=== PATIENT | female | born 1985 | race Caucasian/White ===

== ENCOUNTER → 2016-08-29 | Outpatient (CLI) | payer MEDICAID | LOC: FIMAGING 13:11 | PROVIDERS: ATTEND Obstetrics & Gynecology Gynecology | DX: Z12.39 Encounter for other screening for malignant neoplasm of breast (principal); N64.4 Mastodynia ==

== ENCOUNTER 2017-04-15 13:51 | Emergency (ER) | payer MEDICAID ==
[2017-04-15 14:52] LABS: PLATELET COUNT 198 10^3/uL (150-400)
--- NOTE | 2017-04-15 14:57 | EDPHY ---
H & P Time Seen by Provider: 04/15/17 14:31 HPI/ROS: CHIEF COMPLAINT: Abdominal pain HISTORY OF PRESENT ILLNESS: 31-year-old woman started having symptoms 1 week ago on . Started as central pain in her low abdomen and then ended up focusing just above her umbilicus. It is worse with movement and dull and worse if she bends over. Not associated with any change with eating or drinking. No vomiting diarrhea urinary symptoms or vaginal symptoms. Symptoms moderate today and persistent. No fever and no direct trauma. REVIEW OF SYSTEMS: Eye: no change in vision ENT: no sore throat Cardiac: no chest pain or syncope Pulmonary: no cough or SOB Abdomen: HPI Musculoskeletal: no back pain Skin: no rash Neuro: no headache Constitutional: no fever : no urinary symptoms A comprehensive 10 point review of systems is otherwise negative aside from elements mentioned in the history of present illness. PAST MEDICAL HISTORY: Childhood asthma Social history: No alcohol. Returned in August from travel to [facility] and [facility] General Appearance: Alert and conversant, cooperative. Eyes: No scleral icterus. ENT, Mouth: Normal mucous membranes. Respiratory: Normal respiratory effort, breath sounds equal, lungs are clear to auscultation. Cardiovascular: Regular rate and rhythm. Gastrointestinal: Umbilical tenderness without evidence of fluctuance or palpable hernia. No McBurney's point tenderness. Neurological: Alert and oriented x3. Normally conversant. Face symmetric, normal movement and sensation in all extremities. Skin: Warm and dry, no rashes. Musculoskeletal: No peripheral edema and no joint swelling. Psychiatric: Not agitated. Emergency Department course/MDM: Patient has persistent periumbilical pain and tenderness after 6 days. At this point I think it is more reasonable to do imaging then continued watchful waiting. Her symptoms are persistent and CT scanning discussed and consented. 1625: CT shows collapsed R follicle, some pelvic fluid, normal appendix; [place]. No periumbilical hernia. Results discussed, most reasonable explanation is ruptured ovarian cyst last week. Patient looks comfortable, using her laptop. I do not think she has ovarian torsion. No peritoneal signs. Referred for primary care and/or OBGYN follow-up. Smoking Status: Never smoked Constitutional: Initial Vital Signs Temperature (C) 37.3 C 04/15/17 13:54 Heart Rate 78 04/15/17 13:54 Respiratory Rate 18 04/15/17 13:54 Blood Pressure 101/54 L 04/15/17 13:54 O2 Sat (%) 96 04/15/17 13:54 O2 Delivery Mode Room Air Allergies/Adverse Reactions: No Known Allergies Allergy (Unverified 09/11/13 07:52) Home Medications: Medication Instructions Recorded AMOXICILLIN TRIHYDRATE [Amoxil] 875 mg PO BID #20 tablet 09/11/13 Antipyrine/Benzocaine 4 drop OT Q1 PRN #1 btl 09/11/13 [Antipyrine-Benzocaine Otic Amy] Hydrocodone/APAP 5/325 [Harmony 1 - 2 each PO Q6 PRN #12 tab 09/11/13 5/325] Medical Decision Making - Diagnostics Imaging Results: Imaging Impressions Abdomen CT 04/15/17 15:33 Impression: 1. Small amount of fluid in the posterior right pelvis with a partially collapsed right ovarian cyst or follicle measuring 1.9 cm. 2. Constipation. 3. No CT evidence of appendicitis, abscess or bowel obstruction. 4. No evidence of inguinal hernia. Findings and recommendations discussed with Emergency Department physician, Teofilo Tovar at 1629 hour, 04/15/2017. Final report concurs with initial preliminary interpretation. Cosign: Dr. Vasu Salamanca. Differential Diagnosis: Includes but not limited to periumbilical hernia, appendicitis, ovarian torsion or ovarian cyst, ectopic - Data Points Laboratory Results: Laboratory Results 04/15/17 14:30 04/15/17 14:30 04/15/17 04/15/17 04/15/17 14:30 14:30 14:30 WBC RBC Hgb Hct MCV MCH MCHC RDW Plt Count MPV Neut % (Auto) Lymph % (Auto) [place] % (Auto) Eos % (Auto) Baso % (Auto) Nucleat RBC Rel Count Absolute Neuts (auto) Absolute Lymphs (auto) Absolute Monos (auto) Absolute Eos (auto) Absolute Basos (auto) Absolute Nucleated RBC Immature Gran % Immature Gran # Sodium 140 mEq/L mEq/L (134-144) Potassium 3.6 mEq/L mEq/L (3.5-5.2) Chloride 105 mEq/L mEq/L (97-110) Carbon Dioxide 22 mEq/l mEq/l (22-31) Anion Gap 13 mEq/L mEq/L (8-16) BUN 11 mg/dL mg/dL (7-23) Creatinine 0.6 mg/dL mg/dL (0.6-1.0) Estimated GFR > 60 Glucose 131 mg/dL H mg/dL (70-100) Calcium 9.8 mg/dL mg/dL (8.5-10.4) Beta HCG, Qual NEGATIVE Urine RBC 15-25 /hpf H /hpf (0-3) Urine WBC 1-3 /hpf /hpf (0-3) Ur Epithelial Cells TRACE /lpf /lpf (NONE-1+) Urine Bacteria TRACE /hpf H /hpf (NONE SEEN) Urine Mucus TRACE /lpf /lpf (NONE-1+) 04/15/17 14:30 WBC 5.30 10^3/uL 10^3/uL (3.80-9.50) RBC 3.72 10^6/uL L 10^6/uL (4.18-5.33) Hgb 12.5 g/dL L g/dL (12.6-16.3) Hct 36.4 % L % (38.0-47.0) MCV 97.8 fL fL (81.5-99.8) MCH 33.6 pg pg (27.9-34.1) MCHC 34.3 g/dL g/dL (32.4-36.7) RDW 11.7 % % (11.5-15.2) Plt Count 198 10^3/uL 10^3/uL (150-400) MPV 10.0 fL fL (8.7-11.7) Neut % (Auto) 49.8 % % (39.3-74.2) Lymph % (Auto) 36.2 % % (15.0-45.0) [place] % (Auto) 9.1 % % (4.5-13.0) Eos % (Auto) 3.2 % % (0.6-7.6) Baso % (Auto) 1.5 % % (0.3-1.7) Nucleat RBC Rel Count 0.0 % % (0.0-0.2) Absolute Neuts (auto) 2.64 10^3/uL 10^3/uL (1.70-6.50) Absolute Lymphs (auto) 1.92 10^3/uL 10^3/uL (1.00-3.00) Absolute Monos (auto) 0.48 10^3/uL 10^3/uL (0.30-0.80) Absolute Eos (auto) 0.17 10^3/uL 10^3/uL (0.03-0.40) Absolute Basos (auto) 0.08 10^3/uL 10^3/uL (0.02-0.10) Absolute Nucleated RBC 0.00 10^3/uL 10^3/uL (0-0.01) Immature Gran % 0.2 % % (0.0-1.1) Immature Gran # 0.01 10^3/uL 10^3/uL (0.00-0.10) Sodium Potassium Chloride Carbon Dioxide Anion Gap BUN Creatinine Estimated GFR Glucose Calcium Beta HCG, Qual Urine RBC Urine WBC Ur Epithelial Cells Urine Bacteria Urine Mucus Departure - Departure Disposition: Home, Routine, Self-Care Clinical Impression: Abdominal pain Qualifiers: Abdominal location: periumbilical Qualified Code(s): R10.33 - Periumbilical pain Ovarian cyst Qualifiers: Laterality: right Qualified Code(s): N83.201 - Unspecified ovarian cyst, right side Condition: Good Instructions: Ovarian Cyst (ED) Additional Instructions: Primary care and OBGYN referral. Referrals: Alisha Roberts MD [Medical Doctor] - As per Instructions Dewayne Tilley DO [Doctor of Osteopathy] - As per Instructions
[2017-04-15] MEDS ORDERED: IOPAMIDOL (ISOVUE-300) 100 ML BTL ONE (15:41)
[2017-04-15 17:11] VITALS: BP 105/56; PULSE 68; RESP 16; TEMP 99; O2SAT 97
== END 2017-04-15 17:09 | disposition home or self-care (01) ==
DX: N83.201 Unspecified ovarian cyst, right side (principal); J45.909 Unspecified asthma, uncomplicated
CPT/HCPCS: Q9967